=== PATIENT | male | born 1965 | race Caucasian/White ===

== ENCOUNTER 2018-12-06 09:06 | Day surgery (SDC) | payer BC ==
[~2018-12-06 09:06] MED LIST: Lactated Ringers 1,000 ML IV SCH; Sodium Chloride 0.9% 10 ML SDV IV PRN; Sodium Chloride 0.9% 10 ML Syringe FLUSH PRN; Sodium Chloride 0.9% 2.5 ML Syringe FLUSH PRN
[2018-12-06] MEDS ORDERED: Metoclopramide 10 MG/2 ML SDV IVPUSH ONE ×2 (09:09→09:45)
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
[2018-12-06] MEDS ORDERED: Propofol 200 MG/20 ML SDV ONE ×2 (10:33→11:13)
[2018-12-06] MEDS ORDERED: Lidocaine 2% 5 ML SDV ONE (10:34)
[2018-12-06] MEDS ORDERED: Midazolam 1 MG/ML 2 ML SDV ONE (10:35)
--- NOTE | 2018-12-06 11:28 | PCM.OPNOTE ---
- General Post-Op/Procedure Note Date of Surgery/Procedure: 12/06/18 Operative Procedure(s): Screening colonoscopy Findings: Descending colon polyp Pre Op Diagnosis: Screening colonoscopy Post-Op Diagnosis: Descending colonoscopy Anesthesia Technique: MAC Primary Surgeon: Sofi Power Condition: Good
--- NOTE | 2018-12-06 12:10 | PCM.POSTAN ---
POST ANESTHESIA ASSESSMENT - MENTAL STATUS Mental Status: Alert, Oriented - VITAL SIGNS Vital Signs: Last Vital Signs Temp 97.7 F 12/06/18 11:38 Pulse 45 L 12/06/18 12:03 Resp 15 12/06/18 12:03 BP 82/47 L 12/06/18 12:03 Pulse Ox 100 12/06/18 12:03 - RESPIRATORY Respiratory Status: Respiratory Rate WNL, Airway Patent, O2 Saturation Stable - CARDIOVASCULAR CV Status: Pulse Rate WNL, Blood Pressure Stable - GASTROINTESTINAL GI Status: No Symptoms - POST OP HYDRATION Hydration Status: Adequate & Stable - OBSERVATIONS Free Text/Narrative:: awoke without agitation.
--- NOTE | 2018-12-06 12:10 | PCM48HPAN ---
Post Anesthesia Note - EVALUATION WITHIN 48HRS OF ANESTHETIC Vital Signs in Normal Range: Yes Patient Participated in Evaluation: Yes Respiratory Function Stable: Yes Airway Patent: Yes Cardiovascular Function Stable: Yes Hydration Status Stable: Yes Pain Control Satisfactory: Yes Nausea and Vomiting Control Satisfactory: Yes Mental Status Recovered: Yes Vital Signs: Last Vital Signs Temp 97.7 F 12/06/18 11:38 Pulse 58 L 12/06/18 12:08 Resp 12 12/06/18 12:08 BP 96/56 L 12/06/18 12:08 Pulse Ox 100 12/06/18 12:08
[2018-12-06 12:20] VITALS: BP 99/64
--- NOTE | 2018-12-06 13:12 | OR ---
SURGEON: SOFI POWER MD DATE OF PROCEDURE: 12/06/2018 PREOPERATIVE DIAGNOSIS: Screening colonoscopy. POSTOPERATIVE DIAGNOSIS: Descending colon polyp. PROCEDURE PERFORMED: Screening colonoscopy. PRIMARY SURGEON: Sofi Power MD. ANESTHESIA: MAC. INSTRUMENT USED: Olympus colonoscope. EXTENT OF EXAM: To the cecum. PREPARATION: Good. LIMITATIONS: None. INDICATIONS FOR EXAMINATION: The patient is a 53-year-old male who presents for screening colonoscopy. I explained the procedure; expected perioperative course; and risks including bleeding, infection, or damage to surrounding structures including perforation. The patient verbalized understanding and wishes to proceed. PROCEDURE IN DETAIL: The patient was brought to the endoscopy suite and placed in the left lateral decubitus position. A time-out was completed verifying the patient's name, age, date of , allergies, and procedure to be performed. Monitored anesthesia care was induced and continuous oxygen was provided via nasal cannula throughout the procedure. After adequate sedation was achieved, a digital rectal exam was performed. This exam was within normal limits. A well-lubricated colonoscope was inserted in the rectum and advanced under direct visualization to the level of the cecum. The cecum was identified by both visual and anatomic landmarks. A photograph was taken of the cecal cap as well as with the scope retroflexed within the cecum. Scope was then fully withdrawn while examining the color, texture, anatomy, and integrity of the mucosa from the cecum to the anal canal. In the distal descending colon, the patient was found to have a small sessile polyp. This was removed in piecemeal fashion using cold biopsy forceps. The remainder of the colon appeared normal. The scope was brought into the rectum and retroflexed to allow visualization of the anal canal opening. This appeared normal and a photograph was taken. The scope was straightened out and fully withdrawn. The cecum to anus time was 6 minutes. The patient tolerated the procedure well and was taken to PACU in stable condition. ENDOSCOPIC DIAGNOSIS: Descending colon polyp. RECOMMENDATIONS: Follow up in clinic in 2 weeks. GABINO MACDONALD /[id number]
== END 2018-12-06 12:55 | disposition home or self-care (01) ==
LOC: MW.SDS 09:06
PROVIDERS: ATTEND Surgery
DX: Z12.11 Encounter for screening for malignant neoplasm of colon (principal); K63.5 Polyp of colon; M19.019 Primary osteoarthritis, unspecified shoulder; F43.10 Post-traumatic stress disorder, unspecified; Z79.899 Other long term (current) drug therapy
CPT/HCPCS: 45380; 88305; J2001; J2250; J2704; J2765; J7120

== ENCOUNTER 2024-02-04 18:44 | Emergency (ER) | payer BC, OTHER ==
[2024-02-04 22:09] VITALS: BP 110/70; PULSE 60
== END 2024-02-04 21:00 | disposition home or self-care (01) ==
LOC: MW.ED 18:44
DX: M25.561 Pain in right knee (principal); V29.99XA Rider (driver) (passenger) of other motorcycle injured in unspecified traffic accident, initial encounter; Z79.899 Other long term (current) drug therapy; Z75.8 Other problems related to medical facilities and other health care
CPT/HCPCS: 73562-26-RT; 73562-RT; 99283

== ENCOUNTER 2024-08-05 13:56 | Emergency (ER) | payer BC ==
[2024-08-05 16:20] VITALS: BP 124/72; PULSE 57
== END 2024-08-05 16:20 | disposition home or self-care (01) ==
LOC: MW.ED 13:56
DX: I82.402 Acute embolism and thrombosis of unspecified deep veins of left lower extremity (principal); Z79.01 Long term (current) use of anticoagulants; Z75.8 Other problems related to medical facilities and other health care
CPT/HCPCS: 93971-26-LT; 93971-LT; 99282; 99283